=== PATIENT | male | born 1950 | race Caucasian/White ===

== ENCOUNTER → 2018-02-23 | Outpatient (CLI) | payer BC ==
--- NOTE | 2018-02-23 14:30 | XR ---
EXAMINATION TYPE: XR chest 2V DATE OF EXAM: 02/23/2018 COMPARISON: NONE HISTORY: Dyspnea TECHNIQUE: Frontal and lateral views of the chest are obtained. FINDINGS: The patient is rotated. There is bronchial wall thickening. There is no focal air space op[place], pleural effusion, or pneumothorax seen. The cardiac silhouette size is within normal limits. The osseous structures are intact. IMPRESSION: Correlate for bronchitis, reactive airways disease.
== END | disposition home or self-care (01) ==
LOC: RADXRMAIN 14:01
PROVIDERS: ATTEND Family Medicine
DX: R06.00 Dyspnea, unspecified (principal)
CPT/HCPCS: 71046